=== PATIENT | female | born 1985 | race Caucasian/White ===

== ENCOUNTER 2017-02-24 11:18 | Emergency (ER) | payer BC ==
[2017-02-24 11:25] VITALS: BP 136/80; PULSE 73; TEMP 98.3; BMI 22.6
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
[2017-02-24] MEDS ORDERED: IBUPROFEN 600 MG TABLET (FP) PO ONE ×2 (13:02→13:03)
== END 2017-02-24 13:09 | disposition home or self-care (01) ==
LOC: JERFT 11:18
PROC: 3E0234Z Introduction of Serum, Toxoid and Vaccine into Muscle, Percutaneous Approach (ICD-10-PCS; principal; 2017-02-24)
PROC: 0JQ10ZZ Repair Face Subcutaneous Tissue and Fascia, Open Approach (ICD-10-PCS; 2017-02-24)
DX: S01.112A Laceration without foreign body of left eyelid and periocular area, initial encounter (principal); S00.11XA Contusion of right eyelid and periocular area, initial encounter; H11.31 Conjunctival hemorrhage, right eye; M25.562 Pain in left knee; Y04.2XXA Assault by strike against or bumped into by another person, initial encounter; Y93.89 Activity, other specified; Y92.89 Other specified places as the place of occurrence of the external cause; Y07.9 Unspecified perpetrator of maltreatment and neglect
CPT/HCPCS: 99282-25

== ENCOUNTER 2017-03-05 11:12 | Emergency (ER) | payer BC ==
[2017-03-05 11:17] VITALS: BP 115/70; PULSE 83; TEMP 98; BMI 22.1
--- NOTE | 2017-03-05 12:44 | PDOC ---
Suture Removal/Wound Check HPI - History of Present Illness Chief Complaint: Suture/Staple Removal(Here) Stated Complaint: STAPLE/SUTURE REMOVAL Time Seen by Provider: 03/05/17 11:30 History Source: Yes: Patient Exam Limitations: Yes: No Limitations Past History - Past Medical History Allergies/Adverse Reactions: Allergies shellfish derived Allergy (Intermediate, Verified 03/05/17 11:13) THROAT AND PALATE SWELLS No Known Drug Allergies Allergy (Verified 03/05/17 11:13) nuts Allergy (Intermediate, Uncoded 03/05/17 11:13) THROAT AND PALATE SWELLING Home Medications: Ambulatory Orders Ibuprofen [Motrin -] 400 mg PO QID PRN #28 tablet 02/24/17 - Reproductive History LMP: 07/19/12 - Social History Smoking History: No Smoking Status: Never smoked Number of Ciarettes Per Day: 0 Alcohol Use: occasionally Drug Use: none Suture Removal/Wound Check PE - Physical Exam Comments: 03/05/17 12:40 unable to removal subcuticular suture; simple interupted removed wo problem Medical Decision Making - Medical Decision Making 03/05/17 12:42 pt instructed to use warm soaks to area and return for suture removal in 3 days *DC/Admit/Observation/Transfer Diagnosis at time of Disposition: Encounter for removal of sutures - Discharge Dispostion Disposition: HOME Condition at time of disposition: Stable Admit: No - Patient Instructions Additional Instructions: warm soaks to area; return 3 days for another attempt of suture removal
--- NOTE | 2017-03-05 12:50 | PDOC ---
Suture Removal/Wound Check HPI - History of Present Illness Chief Complaint: Suture/Staple Removal(Here) Stated Complaint: STAPLE/SUTURE REMOVAL Time Seen by Provider: 03/05/17 11:30 Past History - Past Medical History Allergies/Adverse Reactions: Allergies shellfish derived Allergy (Intermediate, Verified 03/05/17 11:13) THROAT AND PALATE SWELLS No Known Drug Allergies Allergy (Verified 03/05/17 11:13) nuts Allergy (Intermediate, Uncoded 03/05/17 11:13) THROAT AND PALATE SWELLING Home Medications: Ambulatory Orders Ibuprofen [Motrin -] 400 mg PO QID PRN #28 tablet 02/24/17 - Reproductive History LMP: 07/19/12 - Social History Smoking History: No Smoking Status: Never smoked Number of Ciarettes Per Day: 0 Alcohol Use: occasionally Drug Use: none *DC/Admit/Observation/Transfer Diagnosis at time of Disposition: Visit for suture removal - Discharge Dispostion Disposition: HOME Condition at time of disposition: Stable - Referrals Referrals: Wade Wharton MD, MD [Primary Care Provider] - - Patient Instructions Additional Instructions: ; warm soaks to area; return 3 days for another attempt of suture removal; 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
== END 2017-03-05 13:23 | disposition home or self-care (01) ==
LOC: JERFT 11:12 → SUPCPDRO 11:12 → JERFT 13:23
DX: Z48.02 Encounter for removal of sutures (principal)
CPT/HCPCS: 99281-25

== ENCOUNTER 2018-05-11 18:58 | Emergency (ER) | payer BC ==
[2018-05-11 19:18] VITALS: BP 111/70; PULSE 74; TEMP 99.1; BMI 21.1
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
[2018-05-11] MEDS ORDERED: AZITHROMYCIN 250 MG TABLET PO ONE (20:28)
[2018-05-11] MEDS ORDERED: AZITHROMYCIN 500 MG TABLET ONE (20:43)
== END 2018-05-11 22:38 | disposition home or self-care (01) ==
LOC: JERFT 18:58
DX: Z20.6 Contact with and (suspected) exposure to human immunodeficiency virus [HIV] (principal); Z20.2 Contact with and (suspected) exposure to infections with a predominantly sexual mode of transmission
CPT/HCPCS: 36415; 87389; 87491; 87591; 99281-25

== ENCOUNTER 2019-01-13 11:10 | Emergency (ER) | payer BC ==
[2019-01-13 11:51] VITALS: BP 133/85; PULSE 75; TEMP 97.7
--- NOTE | 2019-01-13 11:52 | PDOC ---
Rapid Medical Evaluation Time Seen by Provider: 01/13/19 11:46 Medical Evaluation: Allergies Allergy/AdvReac Type Severity Reaction Status Date / Time shellfish derived Allergy Intermediate THROAT AND Verified 05/11/18 19:16 PALATE SWELLS No Known Drug Allergies Allergy Verified 05/11/18 19:16 nuts Allergy Intermediate THROAT AND Uncoded 05/11/18 19:16 PALATE SWELLING 01/13/19 11:46 I have performed a brief in-person evaluation of this patient. The patient presents with a chief complaint of: possible pneumonia, Truvada - " I want to be tested for HIV and started on truvada and prophlyactics for 30 days." contact with female sexual partner positive for HIV and walking pneumonia. diarrhea since yesterday 3 episodes. c/o of sore throat, fatigue, coughing x 1 week. also concerned of "strange odor" to discharge since exposure. Pertinent physical exam findings: well appearing, anxious, would not get off phone call purchasing iphone 8 during triage I have ordered the following: cxr, urine The patient will proceed to the ED for further evaluation.
[2019-01-13 11:53] VITALS: BMI 23.6
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
== END 2019-01-13 13:46 | disposition left against medical advice (07) ==
LOC: JERFT 11:10
DX: Z20.6 Contact with and (suspected) exposure to human immunodeficiency virus [HIV] (principal)
CPT/HCPCS: 99281-25